=== PATIENT | female | born 1965 | race Caucasian/White ===

== ENCOUNTER 2025-04-07 22:00 | Emergency (ER) | payer OTHER, SELFPAY ==
--- OUTSIDE RECORDS SUMMARY | 2025-04-07 22:03 | XMS_ITS | Encounter Summary ---
Author Organization [facility] Address [address] [place] [address] Care Team Providers Care Graduate Student Instructor Name Role Phone Shon More MD Primary Care Provider [phone] Encounter Details Date Type Department Care Team (Latest Contact Info) Description 04/17/2006 Outpatient Historical [facility] Kashif Redmond MD [address] [facility] [address] [place] [address] Other Screening Mammogram (Primary Dx) Social History Tobacco Use Types Packs/Day Years Used Date Smoking Tobacco: Never Assessed Comments Unknown Sex and Gender Information Value Date Recorded Sex Assigned at Not on file Legal Sex Female 3:52 AM DIE OPERATOR Gender Identity Not on file Sexual Orientation Not on file documented as of this encounter Plan of Treatment Upcoming Encounters Date Type Department Care Team (Late st Contact Info) Description 01/25/2026 10:00 AM DIE OPERATOR Office Visit [facility] Primary [facility] [place] [address] [place] [address] [place] [address] [place] [address] documented as of this encounter Visit Diagnoses Diagnosis Other screening mammogram- Primary documented in this encounter Care Teams Graduate Student Instructor Relationship Specialty [place] [address] [address] [address] PCP - General Family Practice 08/20/23 documented as of this encounter
--- OUTSIDE RECORDS SUMMARY | 2025-04-07 22:03 | XMS_ITS | Clinical Summary ---
Author Organization [facility] Administrative Offices Address [address] [place] [address] Care Team Providers Care Art Tracer Name Role Phone Shon More MD Primary Care Provider [phone] Allergies Active Allergy Reactions Criticality Noted Date Comments Cefprozil Nausea and Vomiting,Dizziness Low 08/20/2023 Sulfa (Sulfonamide Antibiotics) Rash Low 08/20/2023 Medications IBUPROFEN ORAL Take 600 mg by mouth daily. Active acetaminophen (TYLENOL ARTHRITIS) 650 mg Extended Release tablet Take 650 mg by mouth daily. Active ALPRAZolam (XANAX) 0.25 mg tabletIndicatio ns:Anxiety Take 1 Tablet (0.25 mg) by mouth 2 times daily as needed for Anxiety. Take smallest dose, for shortest duration as needed. 20 Tablet 01/09/2024 Active methocarbamoL (ROBAXIN) 500 mg tabletIndicatio ns:Chronic bilateral low back pain without sciatica Take 1 Tablet (500 mg) by mouth 4 times daily as needed for Spasm. 90 Tablet 11 05/25/2024 Active benzonatate (TESSALON) 200 mg capsule Take 1 Capsule (200 mg) by mouth 3 times daily. 20 Capsule 1 03/11/2025 Active Active Problems Problem Noted Date Diagnosed Date Prediabetes 02/23/2025 Osteopenia of multiple sites 01/19/2025 Assessment & Plan (01/19/2025 10:40 AM DOUGH SCALER AND MIXER): On DEXA from OBGYN 06/2024 Diet/exercise tips in AVS, check vitD, etc Orders: COMPREHENSIVE METABOLIC PANEL; Future VITAMIN D 25 HYDROXY; Future Anxiety 01/09/2024 Assessment & Plan (01/19/2025 10:40 AM DOUGH SCALER AND MIXER): Stable on medications. Rare PRN xanax. No SI, if applicable discussed stress relief, sleep tips and/or see AVS. Spinal stenosis of lumbar re gion without neurogenic claudication 11/19/2023 Assessment & Plan (11/19/2023 11:12 AM DOUGH SCALER AND MIXER): Stable and Suboptimal control. Does yoga, prn (OTC)Beyp-zpf-Llvkdvd meds. Rarely has needed prednisone taper PO (last 2y ago approx) History of partial thyroidectomy 11/19/2023 Assessment & Plan (01/19/2025 10:40 AM DOUGH SCALER AND MIXER): Monitor labs. Orders: TSH REFLEXIVE; Future Assessment & Plan (11/19/2023 11:01 AM DOUGH SCALER AND MIXER): Stable. 2003 / cyst (benign). Monitor labs. Cataract of left eye 11/19/2023 Assessment & Plan (11/19/2023 11:04 AM DOUGH SCALER AND MIXER): Suboptimal control. Hx detached retinal; plans catact surgery 11/30/2022. Dr. Nigel Gunn. Scoliosis of lumbar spine 08/20/2023 Assessment & Plan (08/20/2023 1:19 PM CDT): Stable. Doing yoga, applies ice and takes tylenol PRN. [facility] seen by [facility] at [facility]. Pt will bring MRI results to next visit. Encounters Date Type Department Care Team Description 03/11/2025 Telephone [facility] [place] [address] [place] [address] Shon More MD Clinical Consult Before Scheduling 02/23/2025 Results Follow-Up [facility] [place] [address] [place] [address] Shon More MD CBC WITH DIFFERENTIAL, COMPREHENSIVE METABOLIC PANEL, HEMOGLOBIN A1C, Additional followed-up results: 3 02/22/2025 External Device Data [facility] ABSTRACTION Provider, Abstract 02/09/2025 External Device Data [facility] ABSTRACTION Provider, Abstract 02/01/2025 External Device Data [facility]STRACTION Provider, Abstract 02/01/2025 External Device Data [facility] [place]CTION Provider, Abstract 01/31/2025 External Device Data [facility]CTION Provider, Abstract 01/29/2025 External Device Data [facility]CTION Provider, Abstract 01/28/2025 External Device Data [facility] [place]STRACTION Provider, Abstract 01/25/2025 External Device Data [facility] ABSTRACTION Provider, Abstract 01/19/2025 10:00 AM DOUGH SCALER AND MIXER Office Visit [facility] [place] [address] [facility] [place] [address] Shon More MD Encounter for routine adult health examination with abnormal findings (Primary Dx); Anxiety; History of partial thyroidectomy; Encounter for colorectal cancer screening; Osteopenia of multiple sites; Screening for blood disease; Screening for diabetes mellitus (DM); Lipid screening; Encounter for vitamin deficiency screening; Screening for thyroid disorder; Declined influenza vaccine 01/11/2025 External Device Data [facility] ABSTRACTION Provider, Abstract from Last 3 Months Immunizations Immunization Administration Dates Next Due INFLUENZA VACCINE QUADRIVALENT 6 MOS UP PF IM Influenza Seasonal Unspecified Formulation IM ,08/14/2022 Influenza Vaccine High Dose 65+ Yrs IM 8 Family History Medical History Relation Name Comments Diabetes Father Pillo Cancer Mother Judith Breast Cancer Sister 1 Clarissa Gonzales 2004 Kidney Cancer Sister 1 Clarissa Gonzales Multiple myeloma Sister 1 Clarissa Gonzales Cancer - Other Sister 2 Pillo Blood cancer, Neuropathy Multiple myeloma Sister 2 Pillo Ovarian Cancer Neg Hx Relation Name Status Comments Father Pillo Mother Judith Sister 1 Clarissa Gonzales Sister 2 Pillo Social History Tobacco Use Types Packs/Day Years Used Date Smoking Tobacco: Never Smokeless Tobacco: Never Tobacco Cessation:Counseling Given: Not Answered Alcohol Use Standard Drinks/Week Comments Yes 1 (1 standard drink = 0.6 oz pur e alcohol) Comments No Sex and Gender Information Value Date Recorded Sex Assigned at Not on file Legal Sex Female 3:52 AM DOUGH SCALER AND MIXER Gender Identity Not on file Sexual Orientation Not on file Occupation Industry Job Start Date Job End Date Not on file Not on file Not on file Not on file [employer] Not on file Not on file Not on patt e Last Filed Vital Signs Vital Sign Reading Time Taken Comments Blood Pressure 118/62 01/19/2025 10:03 AM DOUGH SCALER AND MIXER Pulse 74 01/19/2025 10:03 AM DOUGH SCALER AND MIXER Temperature 37.1 C (98.7 F) 11/19/2023 10:26 AM DOUGH SCALER AND MIXER Respiratory Rate 22 11/19/2023 10:26 AM DOUGH SCALER AND MIXER Oxygen Saturation 98% 01/19/2025 10:03 AM DOUGH SCALER AND MIXER Inhaled Oxygen Concentration - - Weight 73 kg (161 lb) 01/19/2025 10:03 AM DOUGH SCALER AND MIXER Height 172.7 cm (5' 8 ) 01/19/2025 10:03 AM DOUGH SCALER AND MIXER Body Mass Index 24.48 01/19/2025 10:03 AM DOUGH SCALER AND MIXER Plan of Treatment Upcoming Encounters Date Type Department Care Team (Late st Contact Info) Description 01/25/2026 10:00 AM DOUGH SCALER AND MIXER Office Visit [facility] Primary [facility] [place] [address] [place] [address] [place] [address] [place] [address] Health Maintenance Due Date Last Done Comments DTAP/TDAP/TD VACCINES (1 - Tdap) 02/27/1983 HPV/Cotest (21-29) 02/27/1985 CERVICAL CANCER SCREENING 02/27/1994 HPV/Cotest (30-65) 02/27/1994 PAP SMEAR 02/27/1994 COLORECTAL SCREENING 02/27/2009 Colorectal Cancer Screening 02/27/2009 FIT-DNA Q 3 years 02/27/2009 FIT/FOBT Q 1 year 02/27/2009 Flex Sig/CT Colonography Q 5 years 02/27/2009 ZOSTER VACCINE (1 of 2) 02/27/2014 COVID-19 Vaccine (2023-2 5 season) 2024 01/30/2021, 01/03/2021 BREAST CANCER SCREENING 08/04/2025 08/04/20 24, 04/16/2023, 03/01/2021, Additional history exists RSV VACCINE (60+ or ) (1 - 1-dose 75+ series) 02/27/2039 INFLUENZA VACCINE Completed 01/19/2025, , 08/14/2022, Additional history exists Preventative Visit- Commercial Completed 0 01/19/2025, 05/25/2024, 08/20/2023 Procedures Procedure Name Priority Date/Time Associated Diagnosis Comments VITAMIN D 25 HYDROXY Routine 02/21/2025 8:06 AM CDT Encounter for routine adult health examination with abnormal findings Osteopenia of multiple sites Screening for blood disease Encounter for vitamin deficiency screening TSH REFLEXIVE Routine 02/21/2025 8:06 AM CDT Encounter for routine adult health examination with abnormal findings Screening for thyroid disorder History of partial thyroidectomy LIPID RFLX Routine 02/21/2025 8:06 AM CDT Encounter for routine adult health examination with abnormal findings Screening for blood disease Lipid screening HEMOGLOBIN A1C Routine 02/21/2025 8:06 AM CDT Encounter for routine adult health examination with abnormal findings Screening for diabetes mellitus (DM) COMPREHENSIVE METABOLIC PANEL Routine 02/21/2025 8:06 AM CDT Encounter for routine adult health examination with abnormal findings Osteopenia of multiple sites Screening for blood disease Screening for diabetes mellitus (DM) CBC WITH DIFFERENTIAL Routine 02/21/2025 8:06 AM CDT Encounter for routine adult health examination with abnormal findings Screening for blood disease MAMMO 3D STEPHANIE SCREEN BILAT W OR WO CAD Routine 08/04/2024 11:09 AM CDT Breast cancer screening by mammogram from Last 3 Months or Most Recently Relevant to Health Maintenance Results * LIPID RFLX (02/21/2025 8:06 AM CDT) CHOLESTEROL 184 <200 mg/dL [facility] HDL 69 > OR = 50 mg/dL [facility] TRIGLYCERIDE 76 <150 mg/dL [facility] LDL CALCULATED 98 mg/dL (calc) [facility] Comment: Reference range: <100 Desirable range <100 mg/dL for primary prevention; <70 mg/dL for patients with CHD or diabetic patients with > or = 2 CHD risk factors. LDL-C is now calculated using the Bo calculation, which is a validated novel method providing better accuracy than the Friedewald equation in the estimation of LDL-C. Schuyler LUCAS et al. GITA. 2013;310(19): 5288-9209 (http://education.Restorius/faq/XAF867) CHOL/HDL RATIO 2.7 <5.0 (calc) [facility] NON-HDL CHOLESTEROL 115 <130 mg/dL (calc) [facility] Comment: For patients with diabetes plus 1 major ASCVD risk factor, treating to a non-HDL-C goal of <100 mg/dL (LDL-C of <70 mg/dL) is considered a therapeutic option. Test Performed at: [facility] [address] [place] [address] Teddy Patel MD Blood 02/21/2025 8:06 AM CDT 02/21/2025 8:06 AM CDT us Shon More MD CHEMISTRY ORDERABLES Final Resu lt Performing Organization Address City/[facility]/ZIP Co de Phone Number [facility] [phone] [facility] [id number] [place] [phone] * TSH REFLEXIVE (02/21/2025 8:06 AM CDT) TSH 3.91 0.40 - 4.50 mIU/L [facility] Comment: Test Performed at: [facility] [address] [place] [address] Teddy Patel MD Blood 02/21/2025 8:06 AM CDT 02/21/2025 8:06 AM CDT Shon More MD CHEMISTRY ORDERABLES Final Resu lt [facility] [phone] [facility] [address] [place] [address] * CBC WITH DIFFERENTIAL (02/21/2025 8:06 AM CDT) Pathologist [facility] WBC 4.8 3.8 - 10.8 Thousand/u L [facility] RBC 4.35 3.80 - 5.10 Million/uL [facility] HEMOGLOBIN 14.2 11.7 - 15.5 g/dL [facility] HEMATOCRIT 41.0 35.0 - 45.0 % [facility] MCV 94.3 80.0 - 100.0 fL [facility] MCH 32.6 27.0 - 33.0 pg [facility] MCHC 34.6 32.0 - 36.0 g/dL [facility] Comment: For adults, a slight decrease in the calculated MCHC value (in the range of 30 to 32 g/dL) is most likely not clinically significant; however, it should be interpreted with caution in correlation with other red cell parameters and the patient's clinical condition. RDW 12.2 11.0 - 15.0 % [facility] PLATELETS 320 140 - 400 Thousand/u L [facility] MPV 8.8 7.5 - 12.5 fL [facility] NEUTROPHIL ABSOLUTE 2,198 1,500 - 7,800 cells/uL [facility] LYMPHOCYTE ABSOLUTE 2,011 850 - 3,900 cells/uL [facility] MONOCYTE ABSOLUTE 398 200 - 950 cells/uL [facility] EOSINOPHIL ABSOLUTE 110 15 - 500 cells/uL [facility] BASOPHILS ABSOLUTE 82 0 - 200 cells/uL [facility] NEUTROPHIL 45.8 % [facility] LYMPHOCYTES 41.9 % [facility] MONOCYTE 8.3 % [facility] EOSINOPHILS 2.3 % [facility] BASOPHILS 1.7 % [facility] Comment: Test Performed at: [facility] [address] [place] [address] Teddy Patel MD Blood 02/21/2025 8:06 AM CDT 02/21/2025 8:06 AM CDT Shon More MD HEMATOLOGY ORDERABLES Final Res ult Performing Organization Address [facility] Co de Phone Number [facility] [phone] [facility] [address] [place] [address] * VITAMIN D 25 HYDROXY (02/21/2025 8:06 AM CDT) VITAMIN D, 25 OH, TOTAL 80 30 - 100 ng/mL [facility] Comment: Vitamin D Status 25-OH Vitamin D: Deficiency: <20 ng/mL Insufficiency: 20 - 29 ng/mL Optimal: > or = 30 ng/mL For 25-OH Vitamin D testing on patients on D2-supplementation and patients for whom quantitation of D2 and D3 fractions is required, the [facility]) 25-OH VIT D, (D2,D3), LC/MS/MS is recommended: order code 72101 (patients >2yrs). See Note 1 Note 1 For additional information, please refer to http://education.Restorius/faq/VUX947 (This link is being provided for informational/ educational purposes only.) FASTING:YES FASTING: YES Test Performed at: [facility] [address] Teddy Patel MD Blood 02/21/2025 8:06 AM CDT 02/21/2025 8:06 AM CDT Shon More MD CHEMISTRY ORDERABLES Final Resu lt Performing Organization Address City/[facility]/ZIP Co de Phone Number [facility] [phone] [facility] [address] * (ABNORMAL) HEMOGLOBIN A1C (02/21/2025 8:06 AM CDT) HEMOGLOBIN A1C 5.7(H) <5.7 % of total Hgb [facility] Comment: For someone without known diabetes, a hemoglobin A1c value between 5.7% and 6.4% is consistent with prediabetes and should be confirmed with a follow-up test. For someone with known diabetes, a value <7% indicates that their diabetes is well controlled. A1c targets should be individualized based on duration of diabetes, age, comorbid conditions, and other considerations. This assay result is consistent with an increased risk of diabetes. Currently, no consensus exists regarding use of hemoglobin A1c for diagnosis of diabetes for children. ESTIMATED AVERAGE GLUCOSE (MG/DL) 117 mg/dL [facility] ESTIMATED AVERAGE GLUCOSE (MMOL/L) 6.5 mmol/L [facility] Comment: FASTING:YES FASTING: YES Test Performed at: [facility] [address] [address] [place] [address] Teddy Patel Blood 02/21/2025 8:06 AM CDT 02/21/2025 8:06 AM CDT us Shon More MD CHEMISTRY ORDERABLES Final Resu lt [facility] [phone] [facility] [address] [address] [place] [address] * COMPREHENSIVE METABOLIC PANEL (02/21/2025 8:06 AM CDT) GLUCOSE 88 65 - 99 mg/dL [facility] Comment: Fasting reference interval BUN 13 7 - 25 mg/dL [facility] CREATININE 0.76 0.50 - 1.05 mg/dL [facility] GFR 90 > OR = 60 mL/min/1. 73m2 [facility] BUN/CREAT RATIO SEE NOTE: 6 - 22 (calc) [facility] Comment: Not Reported: BUN and Creatinine are within reference range. SODIUM 140 135 - 146 mmol/L [facility] POTASSIUM 4.1 3.5 - 5.3 mmol/L [facility] CHLORIDE 102 98 - 110 mmol/L [facility] CO2 30 20 - 32 mmol/L [facility] CALCIUM 9.4 8.6 - 10.4 mg/dL [facility] TOTAL PROTEIN 6.9 6.1 - 8.1 g/dL [facility] ALBUMIN 4.4 3.6 - 5.1 g/dL [facility] GLOBULIN 2.5 1.9 - 3.7 g/dL (calc) [facility] ALBUMIN/GLOBULIN RATIO 1.8 1.0 - 2.5 (calc) [facility] BILIRUBIN TOTAL 0.4 0.2 - 1.2 mg/dL [facility] ALKALINE PHOSPHATASE 67 37 - 153 U/L [facility] AST 22 10 - 35 U/L [facility] ALT 18 6 - 29 U/L [facility] Comment: FASTING:YES FASTING: YES Test Performed at: [facility] [address] [place] [address] Teddy Patel MD Blood 02/21/2025 8:06 AM CDT 02/21/2025 8:06 AM CDT Shon More MD CHEMISTRY ORDERABLES Final Resu lt [facility] [phone] [facility] [address] [place] [address] * MAMMO 3D STEPHANIE SCREEN BILAT W OR WO CAD (08/04/2024 11:09 AM CDT) Anatomical Region Laterality Modality Breast Bilateral Mammography 08/04/2024 11:0 9 AM CDT Impressions 08/04/2024 11:45 AM CDT IMPRESSION: Negative bilateral screening mammogram. Recommend routine followup. OVERALL FINAL ASSESSMENT: BI-RADS CATEGORY 1 - Negative. DICTATION LOCATION: [facility] Narrative 08/04/2024 11:45 AM CDT BILATERAL SCREENING DIGITAL MAMMOGRAMS WITH COMPUTER ASSISTED DIAGNOSIS WITH TOMOGRAPHY DATE: 08/04/2024 11:09 AM HISTORY: Breast cancer screening by mammogram COMPARISON: 04/16/2023 and 03/01/2021. TECHNIQUE: A bilateral screening mammogram was performed. Low-dose full-field digital breast tomosynthesis examination was performed with 2D and 3D acquisitions. Examination is read in conjunction with computer aided detection. BREAST COMPOSITION: There are scattered areas of fibroglandular density. FINDINGS: No new masses, suspicious calcifications, or areas of asymmetry or distortion are identified. The images were reviewed using the CAD system. Procedure Note Malini Yi MD - 08/04/2024 BILATERAL SCREENING DIGITAL MAMMOGRAMS WITH COMPUTER ASSISTED DIAGNOSIS WITH TOMOGRAPHY DATE: 08/04/2024 11:09 AM HISTORY: Breast cancer screening by mammogram COMPARISON: 04/16/2023 and 03/01/2021. TECHNIQUE: A bilateral screening mammogram was performed. Low-dose full-field digital breast tomosynthesis examination was performed with 2D and 3D acquisitions. Examination is read in conjunction with computer aided detection. BREAST COMPOSITION: There are scattered areas of fibroglandular density. FINDINGS: No new masses, suspicious calcifications, or areas of asymmetry or distortion are identified. The images were reviewed using the CAD system. IMPRESSION: Negative bilateral screening mammogram. Recommend routine followup. OVERALL FINAL ASSESSMENT: BI-RADS CATEGORY 1 - Negative. DICTATION LOCATION: [facility] Lena Yoder MD MAMMO ORDERABLES Final Result from Last 3 Months or Most Recently Relevant to Health Maintenance Insurance [facility] OPTIONS [address]PO [id number] [place] [address] RX [employer] RX Member Subscriber Plan / Payer (Ef fective 2022-Present) Name:Nena Bradford Relation to Subscriber:Not on file Name:Nena Bradford Subscriber ID:Not on file Date of :1965 Payer ID:Not on file Type:RX Commercial Address: [place] Care Teams Art Tracer Relationship Specialty [place] [address] [place] [phone] PCP - General Family Practice 08/20/23
--- OUTSIDE RECORDS SUMMARY | 2025-04-07 22:03 | XMS_ITS | Encounter Summary ---
Author Organization [facility] Address [address] [place] [address] Care Team Providers Care Gym Instructor Name Role Phone Shon More MD Primary Care Provider [phone] Encounter Details Date Type Department Care Team (Latest Contact Info) Description 07/14/2002 Outpatient Historical [facility] Tam Waldrop MD [address] [facility] [place] [address] NONTOX UNINODULAR GOITER (Primary Dx) Social History Tobacco Use Types Packs/Day Years Used Date Smoking Tobacco: Never Assessed Comments Unknown Sex and Gender Information Value Date Recorded Sex Assigned at Not on file Legal Sex Female 3:52 AM CABLE ENGINEER Gender Identity Not on file Sexual Orientation Not on file documented as of this encounter Plan of Treatment Upcoming Encounters Date Type Department Care Team (Late st Contact Info) Description 01/25/2026 10:00 AM CABLE ENGINEER Office Visit [facility] Primary [facility] [place] [address] [place] [address] [place] [address] [address] [place] [address] documented as of this encounter Visit Diagnoses Diagnosis Nontoxic uninodular goiter- Primary documented in this encounter Care Teams Gym Instructor Relationship Specialty [place] [address] [address] [place] [phone] PCP - General Family Practice 08/20/23 documented as of this encounter
--- OUTSIDE RECORDS SUMMARY | 2025-04-07 22:03 | XMS_ITS | Encounter Summary ---
Author Organization [facility] Address [address] [place] [address] Care Team Providers Care Cutting And Printing Machine Operator Name Role Phone Shon More MD Primary Care Provider [phone] Encounter Details Date Type Department Care Team (Latest Contact Info) Description 05/11/2002 Outpatient Historical [facility]PATIENT Tam Waldrop MD [address] [facility] [facility] [address] [place] [address] CYST OF THYROID (Primary Dx) Social History Tobacco Use Types Packs/Day Years Used Date Smoking Tobacco: Never Assessed Comments Unknown Sex and Gender Information Value Date Recorded Sex Assigned at Not on file Legal Sex Female 3:52 AM TRESTLE MECHANIC Gender Identity Not on file Sexual Orientation Not on file documented as of this encounter Plan of Treatment Upcoming Encounters Date Type Department Care Team (Late st Contact Info) Description 01/25/2026 10:00 AM TRESTLE MECHANIC Office Visit [facility] [place] [address] [place] [address] [place] [address] [place] [address] documented as of this encounter Visit Diagnoses Diagnosis Cyst of thyroid- Primary documented in this encounter Care Teams Cutting And Printing Machine Operator Relationship Specialty [place] [address] [place] [phone] PCP - General Family Practice 08/20/23 documented as of this encounter
--- OUTSIDE RECORDS SUMMARY | 2025-04-07 22:03 | XMS_ITS | Encounter Summary ---
Author Organization [facility] Address [address] [place] [address] Care Team Providers Care Cra Name Role Phone Shon More MD Primary Care Provider [phone] Encounter Details Date Type Department Care Team (Latest Contact Info) Description 09/12/2003 Outpatient Historical [facility] Vazquez SEBACEOUS CYST (Primary Dx) Social History Tobacco Use Types Packs/Day Years Used Date Smoking Tobacco: Never Assessed Comments Unknown Sex and Gender Information Value Date Recorded Sex Assigned at Not on file Legal Sex Female 3:52 AM JAVA DEVELOPER ANALYST Gender Identity Not on file Sexual Orientation Not on file documented as of this encounter Plan of Treatment Upcoming Encounters Date Type Department Care Team (Late st Contact Info) Description 01/25/2026 10:00 AM JAVA DEVELOPER ANALYST Office Visit [facility] [place] [address] [place] [address] [place] [address] [address] [place] [address] documented as of this encounter Visit Diagnoses Diagnosis Sebaceous cyst- Primary documented in this encounter Care Teams Cra Relationship Specialty [place] [address] [address] [place] [address] PCP - General Family Practice 08/20/23 documented as of this encounter
--- OUTSIDE RECORDS SUMMARY | 2025-04-07 22:03 | XMS_ITS | Encounter Summary ---
Author Organization [facility] Address [address] [place] [address] Care Team Providers Care Coffin Maker Name Role Phone Shon More MD Primary Care Provider [phone] Encounter Details Date Type Department Care Team (Latest Contact Info) Description 03/23/2004 Outpatient Historical HIS [facility] Kashif Redmond MD [address] [facility] [address] [place] [address] SCREENING MAMM-MAILG NEOPL-OTHER (Primary Dx) Social History Tobacco Use Types Packs/Day Years Used Date Smoking Tobacco: Never Assessed Comments Unknown Sex and Gender Information Value Date Recorded Sex Assigned at Not on file Legal Sex Female 3:52 AM DIRECTOR OF PROGRAMMING Gender Identity Not on file Sexual Orientation Not on file documented as of this encounter Plan of Treatment Upcoming Encounters Date Type Department Care Team (Late st Contact Info) Description 01/25/2026 10:00 AM DIRECTOR OF PROGRAMMING Office Visit [facility] Primary [place] [address] [address] [place] [address] [place] [address] [address] [place] [address] documented as of this encounter Visit Diagnoses Diagnosis Other screening mammogram- Primary documented in this encounter Care Teams Coffin Maker Relationship Specialty [place] [address] [address] [place] [address] PCP - General Family Practice 08/20/23 documented as of this encounter
--- OUTSIDE RECORDS SUMMARY | 2025-04-07 22:03 | XMS_ITS | Encounter Summary ---
Author Organization [facility] Address [address] [place] [address] Care Team Providers Care Forensic Dna Analyst Name Role Phone Shon More MD Primary Care Provider [phone] Encounter Details Date Type Department Care Team (Late st Contact Info) Description 02/23/2025 Results Follow-Up [facility] [place] [address] [place] [address] [place] [address] [place] [address] CBC WITH DIFFERENTIAL, COMPREHENSIVE METABOLIC PANEL, HEMOGLOBIN A1C, Additional followed-up results: 3 Social History Tobacco Use Types Packs/Day Years Used Date Smoking Tobacco: Never Smokeless Tobacco: Never Alcohol Use Standard Drinks/Week Comments Yes 1 (1 standard drink = 0.6 oz pur e alcohol) Comments No Sex and Gender Information Value Date Recorded Sex Assigned at Not on file Legal Sex Female 3:52 AM CIRCULAR KNITTER HELPER Gender Identity Not on file Sexual Orientation Not on file Occupation Industry Job Start Date Job End Date Not on file Not on file Not on file Not on file [employer] Not on file Not on file Not on patt e documented as of this encounter Plan of Treatment Upcoming Encounters Date Type Department Care Team (Late st Contact Info) Description 01/25/2026 10:00 AM CIRCULAR KNITTER HELPER Office Visit [facility] [place] [address] [place] [address] [place] [address] [place] [address] documented as of this encounter Visit Diagnoses Diagnosis Prediabetes- Primary Other abnormal glucose documented in this encounter Care Teams Forensic Dna Analyst Relationship Specialty [place] [address] [facility] [place] [address] PCP - General Family Practice 08/20/23 documented as of this encounter
--- OUTSIDE RECORDS SUMMARY | 2025-04-07 22:03 | XMS_ITS | Encounter Summary ---
Author Organization [facility] Address [address] [place] [address] Care Team Providers Care Radiotelegraphist Name Role Phone Shon More MD Primary Care Provider [phone] Encounter Details Date Type Department Care Team (Latest Contact Info) Description 07/14/2008 Outpatient Historical HIS [facility] Ayaka Redmond MD [address] [address] [place] [address] Other Screening Mammogram Social History Tobacco Use Types Packs/Day Years Used Date Smoking Tobacco: Never Assessed Comments Unknown Sex and Gender Information Value Date Recorded Sex Assigned at Not on file Legal Sex Female 3:52 AM KEY BED INSTALLER Gender Identity Not on file Sexual Orientation Not on file documented as of this encounter Plan of Treatment Upcoming Encounters Date Type Department Care Team (Late st Contact Info) Description 01/25/2026 10:00 AM KEY BED INSTALLER Office Visit [facility] Primary [place] [address] [place] [address] [place] [address] [place] [address] documented as of this encounter Procedures Procedure Name Priority Date/Time Associated Diagnosis Comments MAMMO SCREEN BILAT W OR WO CAD Routine 07/14/2008 2:08 PM CDT documented in this encounter Results * MAMMO DIGITAL SCREEN BILAT (07/14/2008 2:08 PM CDT) Anatomical Region Laterality Modality Breast Bilateral Other 07/14/2008 2:08 PM CDT Narrative 07/14/2008 3:12 PM CDT [address] [address] Admit Date: 07/14/2008 NENA YODER Sex: F Admit Prov: AYAKA SHETH Date: 1965 Primary Care Prov: LISA DE LA CRUZ CMRN: [id number] Room: Mike N: [id number] IMAGING SERVICES Ordering Prov: AYAKA SHETH Accession Number: [id number] Interpretation BILATERAL DIGITAL MAMMOGRAM WITH COMPUTER-ASSISTED DIAGNOSIS There is moderate density fibroglandular tissue in each breast and the pattern is relatively symmetrical. There is no evidence of a dominant mass, malignant type calcification or other radiographic manifestation of malignancy. No change since 02/26. The CAD system was utilized. IMPRESSION No radiographic evidence of malignancy. Assessment BIRADS: 1-Negative Recommendation: Normal interval follow-up Dictated by: VICTOR M VALDERRAMA Electronically signed by: VICTOR M VALDERRAMA 07/14/2008 15:12 Transcribed: 07/14/2008 15:12 CO Procedure Note Victor M Valderrama - 07/14/[address] [address] Admit Date: 07/14/2008 NENA YODER Sex: F Admit Prov: AYAKA SHETH Date: 1965 Primary Care Prov: LISA DE LA CRUZ CMRN: [id number] [facility]: [id number] IMAGING SERVICES Ordering Prov: AYAKA SHETH Interpretation BILATERAL DIGITAL MAMMOGRAM WITH COMPUTER-ASSISTED DIAGNOSIS There is moderate density fibroglandular tissue in each breast andthe pattern is relatively symmetrical. There is no evidence of a dominantmass, malignant type calcification or other radiographic manifestation of malignancy. No change since 02/26. The CAD system was utilized. IMPRESSION No radiographic evidence of malignancy. Assessment BIRADS: 1-Negative Recommendation: Normal interval follow-up Dictated by: VICTOR M VALDERRAMA Electronically signed by: VICTOR M VALDERRAMA 07/14/2008 15:12 Transcribed: 07/14/2008 15:12 CO Ayaka Sheth MD MAMMO ORDERABLES Final Result documented in this encounter Visit Diagnoses Diagnosis Other screening mammogram documented in this encounter Care Teams Radiotelegraphist Relationship Specialty [place] [address] [facility] [place] [address] PCP - General Family Practice 08/20/23 documented as of this encounter
--- OUTSIDE RECORDS SUMMARY | 2025-04-07 22:03 | XMS_ITS | Encounter Summary ---
Author Organization [facility] Address [address] [place] [address] Care Team Providers Care Animal Humane Agent Supervisor Name Role Phone Shon More MD Primary Care Provider [phone] Encounter Details Date Type Department Care Team (Late st Contact Info) Description 08/23/2005 Outpatient Historical [facility] Sena Lamas DIZZINESS AND GIDDINESS (Primary Dx) Social History Tobacco Use Types Packs/Day Years Used Date Smoking Tobacco: Never Assessed Comments Unknown Sex and Gender Information Value Date Recorded Sex Assigned at Not on file Legal Sex Female 3:52 AM CAB DRIVER Gender Identity Not on file Sexual Orientation Not on file documented as of this encounter Plan of Treatment Upcoming Encounters Date Type Department Care Team (Late st Contact Info) Description 01/25/2026 10:00 AM CAB DRIVER Office Visit [facility] [place] [address] [place] [address] [place] [address] [address] [place] [address] documented as of this encounter Visit Diagnoses Diagnosis Dizziness and giddiness- Primary documented in this encounter Care Teams Animal Humane Agent Supervisor Relationship Specialty [place] [address] [address] [place] [address] PCP - General Family Practice 08/20/23 documented as of this encounter
--- OUTSIDE RECORDS SUMMARY | 2025-04-07 22:03 | XMS_ITS | Encounter Summary ---
Author Organization [facility] Address [address] [place] [address] Care Team Providers Care Rafter Cutting Machine Operator Name Role Phone Shon More MD Primary Care Provider [phone] Encounter Details Date Type Department Care Team (Latest Contact Info) Description 08/26/2002 Outpatient Historical HIS [facility] Tam Solitario MD [address] [facility] [place] [address] NONTOX MULTINODUL GOITER (Primary Dx) Social History Tobacco Use Types Packs/Day Years Used Date Smoking Tobacco: Never Assessed Comments Unknown Sex and Gender Information Value Date Recorded Sex Assigned at Not on file Legal Sex Female 3:52 AM TICKET COLLECTOR Gender Identity Not on file Sexual Orientation Not on file documented as of this encounter Plan of Treatment Upcoming Encounters Date Type Department Care Team (Late st Contact Info) Description 01/25/2026 10:00 AM TICKET COLLECTOR Office Visit [facility] [place] [address] [place] [address] [place] [address] [place] [address] documented as of this encounter Visit Diagnoses Diagnosis Nontoxic multinodular goiter- Primary documented in this encounter Care Teams Rafter Cutting Machine Operator Relationship Specialty [place] [address] [place] [address] PCP - General Family Practice 08/20/23 documented as of this encounter
--- OUTSIDE RECORDS SUMMARY | 2025-04-07 22:03 | XMS_ITS | Encounter Summary ---
Author Organization [facility] Address [address] [place] [address] Care Team Providers Care Environmental Education Specialist Name Role Phone Shon More MD Primary Care Provider [phone] Encounter Details Date Type Department Care Team (Latest Contact Info) Description 03/20/2005 Outpatient Historical HIS [facility] Kashif Redmond MD [address] [facility] [address] [place] [address] SCREENING MAMM-MAILG NEOPL-OTHER (Primary Dx) Social History Tobacco Use Types Packs/Day Years Used Date Smoking Tobacco: Never Assessed Comments Unknown Sex and Gender Information Value Date Recorded Sex Assigned at Not on file Legal Sex Female 3:52 AM ELECTRONIC SECURITY SPECIALIST Gender Identity Not on file Sexual Orientation Not on file documented as of this encounter Plan of Treatment Upcoming Encounters Date Type Department Care Team (Late st Contact Info) Description 01/25/2026 10:00 AM ELECTRONIC SECURITY SPECIALIST Office Visit [facility] [place] [address] [place] [address] [place] [address] [address] [place] [address] documented as of this encounter Visit Diagnoses Diagnosis Other screening mammogram- Primary documented in this encounter Care Teams Environmental Education Specialist Relationship Specialty [place] [address] [address] [place] [address] PCP - General Family Practice 08/20/23 documented as of this encounter
--- OUTSIDE RECORDS SUMMARY | 2025-04-07 22:03 | XMS_ITS | Encounter Summary ---
Author Organization [facility] Address [address] [place] [address] Care Team Providers Care Quality Assurance Supervisor Chassis Name Role Phone Shon More MD Primary Care Provider [phone] Encounter Details Date Type Department Care Team (Latest Contact Info) Description 06/26/2007 Outpatient Historical [facility] Kashif Redmond MD [address] [facility] [address] [place] [address] Other Screening Mammogram (Primary Dx) Social History Tobacco Use Types Packs/Day Years Used Date Smoking Tobacco: Never Assessed Comments Unknown Sex and Gender Information Value Date Recorded Sex Assigned at Not on file Legal Sex Female 3:52 AM FINANCIAL AID COORDINATOR Gender Identity Not on file Sexual Orientation Not on file documented as of this encounter Plan of Treatment Upcoming Encounters Date Type Department Care Team (Late st Contact Info) Description 01/25/2026 10:00 AM FINANCIAL AID COORDINATOR Office Visit [facility] Primary [place] [address] [address] [place] [address] [place] [address] [address] [place] [address] documented as of this encounter Visit Diagnoses Diagnosis Other screening mammogram- Primary documented in this encounter Care Teams Quality Assurance Supervisor Chassis Relationship Specialty [place] [address] [address] [place] [address] PCP - General Family Practice 08/20/23 documented as of this encounter
--- OUTSIDE RECORDS SUMMARY | 2025-04-07 22:03 | XMS_ITS | Encounter Summary ---
Author Organization [facility] Address [address] [place] [address] Care Team Providers Care Food Technician Name Role Phone Shon More MD Primary Care Provider [phone] Encounter Details Date Type Department Care Team (Latest Contact Info) Description 03/15/2003 Outpatient Historical HIS [facility] Kashif Redmond MD [address] [facility] [place] [address] [place] [address] SCREENING MAMM-MALIG NEOPL-HI RISK (Primary Dx) Social History Tobacco Use Types Packs/Day Years Used Date Smoking Tobacco: Never Assessed Comments Unknown Sex and Gender Information Value Date Recorded Sex Assigned at Not on file Legal Sex Female 3:52 AM ALUMNAE SECRETARY Gender Identity Not on file Sexual Orientation Not on file documented as of this encounter Plan of Treatment Upcoming Encounters Date Type Department Care Team (Late st Contact Info) Description 01/25/2026 10:00 AM ALUMNAE SECRETARY Office Visit [facility] [place] [address] [address] [place] [address] [place] [address] [place] [address] documented as of this encounter Visit Diagnoses Diagnosis Screening mammogram for high-risk patient- Primary documented in this encounter Care Teams Food Technician Relationship Specialty [place] [address] [place] [address] PCP - General Family Practice 08/20/23 documented as of this encounter
--- OUTSIDE RECORDS SUMMARY | 2025-04-07 22:03 | XMS_ITS | Encounter Summary ---
Author Organization [facility] Address [address] [place] [address] Care Team Providers Care Exhibits Curator Name Role Phone Shon More MD Primary Care Provider [phone] Encounter Details Date Type Department Care Team (Latest Contact Info) Description 03/23/2004 Outpatient Historical [facility] Sena Lamas SCREENING MAMM-MAILG NEOPL-OTHER (Primary Dx) Social History Tobacco Use Types Packs/Day Years Used Date Smoking Tobacco: Never Assessed Comments Unknown Sex and Gender Information Value Date Recorded Sex Assigned at Not on file Legal Sex Female 3:52 AM TREATMENT COUNSELOR Gender Identity Not on file Sexual Orientation Not on file documented as of this encounter Plan of Treatment Upcoming Encounters Date Type Department Care Team (Late st Contact Info) Description 01/25/2026 10:00 AM TREATMENT COUNSELOR Office Visit [facility] [place] [address] [address] [place] [address] [place] [address] [place] [address] documented as of this encounter Visit Diagnoses Diagnosis Other screening mammogram- Primary documented in this encounter Care Teams Exhibits Curator Relationship Specialty [place] [address] [place] [phone] PCP - General Family Practice 08/20/23 documented as of this encounter
[2025-04-07 22:10] VITALS: BP 144/100; PULSE 93; RESP 16; TEMP 36.7; O2SAT 97
--- OUTSIDE RECORDS SUMMARY | 2025-04-08 00:49 | XMS_ITS | Clinical Summary ---
Author Organization [facility] Administrative Offices Address [address] [place] [address] Care Team Providers Care Home Connect Lpn Name Role Phone Shon More MD Primary Care Provider [phone] Allergies Active Allergy Reactions Criticality Noted Date [...] 01/19/2025 Assessment & Plan (01/19/2025 10:40 AM FLAKING ROLL OPERATOR): On DEXA from OBGYN 06/2024 Diet/exercise tips in AVS, check vitD, etc Orders: COMPREHENSIVE METABOLIC PANEL; Future VITAMIN D 25 HYDROXY; Future Anxiety 01/09/2024 Assessment & Plan (01/19/2025 10:40 AM FLAKING ROLL OPERATOR): Stable on medications. Rare PRN xanax. No SI, if applicable discussed stress relief, sleep tips and/or see AVS. 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 Does yoga, prn (OTC)Qgyf-wyd-Femzpqr meds. Rarely has needed prednisone taper PO (last 2y ago approx) History of partial thyroidectomy 11/19/2023 Assessment & Plan (01/19/2025 10:40 AM FLAKING ROLL OPERATOR): Monitor labs. Orders: TSH REFLEXIVE; Future Assessment & Plan (11/19/2023 11:01 AM FLAKING ROLL OPERATOR): Stable. 2003 / cyst (benign). Monitor labs. Cataract of left eye 11/19/2023 Assessment & Plan (11/19/2023 11:04 AM FLAKING ROLL OPERATOR): Suboptimal control. Hx detached retinal; plans catact surgery 11/30/2022. Dr. Nigel Gunn. Scoliosis of lumbar spine 08/20/2023 Assessment & Plan (08/20/2023 1:19 PM CDT): Stable. Doing yoga, applies ice and takes tylenol PRN. Last seen by [facility] at [facility]. Pt will bring MRI results to next visit. Encounters Date Type Department Care Team Description 03/11/2025 Telephone [facility] [place] [address] [place] [address] Shon More MD Clinical Consult Before Scheduling 02/23/2025 Results Follow-Up [facility] [place] [address] [place] [address] Shon More MD CBC [...] STL ABSTRACTION Provider, Abstract 01/19/2025 10:00 AM FLAKING ROLL OPERATOR Office Visit [facility] [place] [address] [facility] [place] [address] Shon More MD Encounter for routine [...] Blood cancer, Neuropathy Multiple myeloma Sister 2 Pilol Ovarian Cancer Neg Hx Relation Name Status [...] on file Legal Sex Female 3:52 AM FLAKING ROLL OPERATOR Gender Identity Not on file Sexual Orientation Not on file Occupation Industry Job Start Date Job End Date Not on file Not on file Not on file Not on file [employer] Not on file Not on file Not on patt e Last Filed Vital Signs Vital Sign Reading Time Taken Comments Blood Pressure 118/62 01/19/2025 10:03 AM FLAKING ROLL OPERATOR Pulse 74 01/19/2025 10:03 AM FLAKING ROLL OPERATOR Temperature 37.1 C (98.7 F) 11/19/2023 10:26 AM FLAKING ROLL OPERATOR Respiratory Rate 22 11/19/2023 10:26 AM FLAKING ROLL OPERATOR Oxygen Saturation 98% 01/19/2025 10:03 AM FLAKING ROLL OPERATOR Inhaled Oxygen Concentration - - Weight 73 kg (161 lb) 01/19/2025 10:03 AM FLAKING ROLL OPERATOR Height 172.7 cm (5' 8 ) 01/19/2025 10:03 AM FLAKING ROLL OPERATOR Body Mass Index 24.48 01/19/2025 10:03 AM FLAKING ROLL OPERATOR Plan of Treatment Upcoming Encounters Date Type Department Care Team (Late st Contact Info) Description 01/25/2026 10:00 AM FLAKING ROLL OPERATOR Office Visit [facility] [place] [address] [place] [address] [place] [address] [address] [place] [address] Health Maintenance Due Date [...] LDL-C. Schuyler LUCAS et al. GITA. 2013;310(19): 8125-9617 (http://education.[employer]/faq/IVE367) CHOL/HDL RATIO 2.7 <5.0 (calc) [facility] NON-HDL CHOLESTEROL 115 <130 mg/dL (calc) [facility] Comment: For patients with diabetes plus 1 major ASCVD risk factor, treating to a non-HDL-C goal of <100 mg/dL (LDL-C of <70 mg/dL) is considered a therapeutic option. Test Performed at: [facility] [address] [place] [address] Teddy Patel MD Blood 02/21/2025 8:06 AM CDT 02/21/2025 8:06 AM CDT us Shon More MD CHEMISTRY ORDERABLES Final Resu lt Performing Organization Address City/[facility]/ZIP Co de Phone Number [facility] [phone] [facility] [id number] [place] [phone] * TSH REFLEXIVE (02/21/2025 8:06 AM CDT) TSH 3.91 0.40 - 4.50 mIU/L [facility] Comment: Test Performed at: [facility] [address] [place] [address] Teddy Patel MD Blood 02/21/2025 8:06 AM CDT 02/21/2025 8:06 AM CDT Shon More MD CHEMISTRY ORDERABLES Final Resu lt [facility] [phone] [facility] [address] [place] [address] * CBC WITH DIFFERENTIAL (02/21/2025 8:06 AM CDT) Pathologist [facility] WBC 4.8 3.8 - 10.8 Thousand/u L [...] [facility] Comment: Test Performed at: [facility] [address] [place] [address] Teddy Patel MD Blood 02/21/2025 8:06 AM CDT 02/21/2025 8:06 AM CDT Shon More MD HEMATOLOGY ORDERABLES Final Res ult Performing Organization Address [facility] Co de Phone Number [facility] [phone] [facility] [address] [place] [phone] * VITAMIN D 25 HYDROXY (02/21/2025 8:06 AM CDT) VITAMIN D, 25 OH, TOTAL 80 30 - 100 ng/mL [facility] Comment: Vitamin D Status 25-OH Vitamin D: Deficiency: <20 ng/mL Insufficiency: 20 - 29 ng/mL Optimal: > or = 30 ng/mL For 25-OH Vitamin D testing on patients on D2-supplementation and patients for whom quantitation of D2 and D3 fractions is required, the [facility] 25-OH VIT D, (D2,D3), LC/MS/MS is recommended: order code [id number] (patients >2yrs). See Note 1 Note 1 For additional information, please refer to http://education.[employer]/faq/HJG123 (This link is being provided for informational/ educational purposes only.) FASTING:YES FASTING: YES Test Performed at: [facility] [address] Teddy Patel MD Blood 02/21/2025 8:06 AM CDT 02/21/2025 8:06 AM CDT Shon More MD CHEMISTRY ORDERABLES Final Resu lt Performing Organization Address City/[facility]/ZIP Co de Phone Number [facility] [phone] [facility] [address] * (ABNORMAL) HEMOGLOBIN A1C (02/21/2025 8:06 AM CDT) HEMOGLOBIN A1C 5.7(H) <5.7 % of total Hgb [facility] Comment: For someone without known diabetes, a [...] children. ESTIMATED AVERAGE GLUCOSE (MG/DL) 117 mg/dL [facility] ESTIMATED AVERAGE GLUCOSE (MMOL/L) 6.5 mmol/L [facility] Comment: FASTING:YES FASTING: YES Test Performed at: [facility] [address] [address] [place] [address] Teddy Patel Blood 02/21/2025 8:06 AM CDT 02/21/2025 8:06 AM CDT us Shon More MD CHEMISTRY ORDERABLES Final Resu lt [facility] [phone] [facility] [address] [address] [place] [phone] * COMPREHENSIVE METABOLIC PANEL (02/21/2025 8:06 AM CDT) GLUCOSE 88 65 - 99 mg/dL [facility] Comment: Fasting reference interval BUN 13 [...] Comment: FASTING:YES FASTING: YES Test Performed at: [facility] [address] [place] [address] Teddy Patel MD Blood 02/21/2025 8:06 AM CDT 02/21/2025 8:06 AM CDT Shon More MD CHEMISTRY ORDERABLES Final Resu lt [facility] [phone] [facility] [address] [place] [address] * MAMMO 3D STEPHANIE SCREEN BILAT W OR WO CAD (08/04/2024 11:09 AM CDT) Anatomical Region Laterality Modality Breast Bilateral Mammography 08/04/2024 11:0 9 AM CDT Impressions 08/04/2024 11:45 AM CDT IMPRESSION: Negative bilateral screening mammogram. Recommend routine followup. OVERALL FINAL ASSESSMENT: BI-RADS CATEGORY 1 - Negative. DICTATION LOCATION: [facility] Narrative 08/04/2024 11:45 AM CDT BILATERAL SCREENING [...] BI-RADS CATEGORY 1 - Negative. DICTATION LOCATION: [facility] Lena Yoder MD MAMMO ORDERABLES Final Result from Last 3 Months or Most Recently Relevant to Health Maintenance Insurance [facility] OPTIONS PPO [id number] RX OPTUM RX Member Subscriber Plan / Payer (Ef fective 2022-Present) Name:Nena Bradford Relation to Subscriber:Not on file Name:Nena Bradford Subscriber ID:Not on file Date of :1965 Payer ID:Not on file Type:RX Commercial Address: [address] Care Teams Home Connect Lpn Relationship Specialty [place] [address] [address] [place] [phone] PCP - General Family Practice 08/20/23
--- OUTSIDE RECORDS SUMMARY | 2025-04-08 00:49 | XMS_ITS | Continuity of Care Document ---
Author Organization [facility] Address [address] [place] [address] Phone Care Team Providers Care Waxing Machine Operator Helper Name Role Phone Jaden Johnson MD Unavailable Unavailable Allergies, Adverse Reactions, Alerts Substance Reaction Status Criticality cefprozil Active No Information Sulfa (Sulfonamide Antibiotics) Nausea Active No Information Medications Medication Instructions Dosage Effective Dates (start - stop) Status Comments Tylenol Arthritis Pain 650 mg tablet,extended release take 2 tablet by oral route every 8 hours as needed swallowing whole with water. Do not break, crush, dissolve and/or chew. 1300 MG - Active Motrin IB 200 mg tablet take 1 tablet by oral route every 6 hours as needed with food 200 MG - Active Vitamin C 1,000 mg tablet - Active vitamin E 1,000 unit capsule - Active Vitamin D3 25 mcg (1,000 unit) tablet - Active vitamin B complex capsule - Active Green Tea capsule - Active acai coffman extract 500 mg capsule - Active Joint Support Complex 500 mg-100 mg-20 mg-0.5 mg capsule - Active Procedures Procedure Date X-ray exam knee, 4+ views X-ray exam knee, 3 views [place] [facility] [place] exam knee, 4+ views Advance Directives Directive Yes / No Effective Date File Name No Information Encounters Encounter Description Practice Location Reason(s) For Visit Diagnoses Date Provider Providers Copied on Encounter Office/outpa tient visit,new, mod [facility], [address] [place], [place], [id number], [place] tel:[phone] [facility] knee pain equally on both sides (chief complaint) Chondromalacia patellae, right kneeBilateral primary osteoarthritis of kneeChondromalaci a patellae, left knee 1 Elizabeth Stanley. [address], [address], [place], [place], [id number] , [place]. tel: [phone] Family History Family Member Type Diagnosis Age At Onset Father Problem Arthritis Mother Problem Cancer, unknown Father Problem Diabetes mellitus Sister Problem malignant neoplasm of kidney Sister Problem malignant neopla sm of breast in first degree relative Payers Payer name Insurance type Covered republican ID Authorayaz caraballo(s) [facility] CI [id number] Social History Type Description Quantity Date Captured Comments Alcohol Use Details Unknown Caffeine Use Details Unknown Tobacco Use Status Current non-smoker Smoking Status Never smoker Non-Smoking Tobacco Use Details : No Details Available : No Details Available Sex Female Vital Signs Date / Time: Height Weight BMI Pulse Rate Blood Pressure Temperature Respiratory Rate Body Surface Area Head Circumference Head Circ. Percentile Wt./Conor. Percentile BMI percentile Pulse Ox Inhaled Ox 11:15 AM 67.00 in Chief Complaint And Reason For Visit From encounter dated '06/20/2021 10:15'. knee pain equally on both sides (chief complaint). Description: Nena Bradford is a 56 year old female.She has a past history significant for lumbar spinal stenosis and degenerative scoliosis. The knee symptoms appear to be separate and distinct however. She presents with pain, crepitus and swelling on the right and left side equally. She states that the symptoms have been acute non-traumatic and beg an 4 months ago. The symptoms occur intermittently. The problem is worse. Currently the patient states that the symptoms are moderate-severe. The patient is experiencing pain in the following location: anterior on the right and left side equally. The pain does not radiate. The symptoms are aggravated by daily activities, ascending stairs and particularly walking. Nena states that the symptoms arerelieved by rest. In addition to knee pain equally on both sides the patient is also experiencing decreased mobility, difficulty bending, crunching and crepitus. Pertinent negatives include locking. The patient has had a previous x-ray. She has had no formal knee treatments. Reason For Referral Reason For Referral No Information Plan Of Treatment Date Type Action Status Referral Ordered: X-ray exam knee, 3 views LT knee ordered Referral Ordered: X-ray exam knee, 4+ views RT knee ordered History Of Present Illness Encounter Date Complaint History Of Prese nt Illness knee pain equally on both sides Nena Bradford is a 56 year old female. She has a past history significant for lumbar spinal stenosis and degenerative scoliosis. The knee symptoms appear to be separate and distinct however. She presents with pain, crepitus and swelling on the right and left side equally. She states that the symptoms have been acute non-traumatic and began 4 months ago. The symptoms occur intermittently. The problem is worse. Currently the patient states that the symptoms are moderate-severe. The patient is experiencing pain in the following location: anterior on the right and left side equally. The pain does not radiate. The symptoms are aggravated by daily activities, ascending stairs and particularly walking. Nena states that the symptoms are relieved by rest. In addition to knee pain equally on both sides the patient is also experiencing decreased mobility, difficulty bending, crunching and crepitus. Pertinent negatives include locking. The patient has had a previous x-ray. She has had no formal knee treatments. Functional Status Date Functional Assessmen t No Information Instructions Date Instruction Additional Infor mation The patient would li ke to proceed with an initial conservative plan. We discussed the risks, benefits, and alternatives of a minor procedure in the form of a steroid vs. PRP injection, as well as the pros and cons of each. She would like to hold off for now which I agree with. We will also institute efforts on weight control. They were given instruction on icing and activity modifications. A prescription was given for physical therapy with the intent to learn a home program. They were given a instructions on use of an oral NSAID/Tylenol with PCP approval. We will consider a steroid injection first if not improved, and if that fails to provide sustained relief we discussed PRP would be an option. The patient will follow up on an as needed basis but was instructed to contact us in 3-4 weeks to update us on her progress. Questions answered, verbalized understanding. Related to Bilateral primary osteoarthritis of knee Assessments Type Assessment Date assessment Chondromalacia patellae, right k nee assessment Bilateral primary osteoarthritis of knee assessment Chondromalacia patellae, left kn ee impression We discussed in deta il the pathophysiology, symptoms, and treatment options of patellofemoral chondrosis/osteoarthritis. We discussed specifically the non-operative management of this problem, as well as the need for a comprehensive treatment program including icing, activity modifications, weight control/weight loss, and a detailed physical therapy regimen. We discussed the role of injections, including cortisone's limited role, viscosupplementation and biologic injections. We discussed the rare indication for arthroscopic intervention and/or TKA/PFA in the future. After a thorough discussion the patient and I have agreed to proceed with the following treatment plan: Mental Status Date Cognitive Assessment Orientation - Butler ed to time, place, person, situation.Normal Orientation Patient Care Teams Name Effective Dates (start - stop) Status Members No Information
--- OUTSIDE RECORDS SUMMARY | 2025-04-08 00:49 | XMS_ITS | Encounter Summary ---
Author Organization [facility] Address [address] [place] [address] Care Team Providers Care Case Specialist Name Role Phone Shon More MD Primary Care Provider [phone] Encounter Details Date Type Department Care Team (Late st Contact Info) Description 08/23/2005 Outpatient Historical [facility] DEPT Sena Lamas DIZZINESS AND GIDDINESS (Primary Dx) Social History Tobacco Use Types Packs/Day Years Used Date Smoking Tobacco: Never Assessed Comments Unknown Sex and Gender Information Value Date Recorded Sex Assigned at Not on file Legal Sex Female 3:52 AM ARCHIVES DIRECTOR Gender Identity Not on file Sexual Orientation Not on file documented as of this encounter Plan of Treatment Upcoming Encounters Date Type Department Care Team (Late st Contact Info) Description 01/25/2026 10:00 AM ARCHIVES DIRECTOR Office Visit [facility] [place] [address] [place] [address] [place] [address] [address] [place] [address] documented as of this encounter Visit Diagnoses Diagnosis Dizziness and giddiness- Primary documented in this encounter Care Teams Case Specialist Relationship Specialty [place] [address] [address] [place] [address] PCP - General Family Practice 08/20/23 documented as of this encounter
--- OUTSIDE RECORDS SUMMARY | 2025-04-08 00:49 | XMS_ITS | Encounter Summary ---
Author Organization [facility] Address [address] [place] [address] Care Team Providers Care Packing Room Inspector Name Role Phone Shon More MD Primary Care Provider Encounter Details Date Type Department Care Team (Latest Contact Info) Description 05/11/2002 Outpatient Historical [facility] LAB,NON-PATIENT Tam Waldrop MD [address] [facility] [address] [place] [address] CYST OF THYROID (Primary Dx) Social History Tobacco Use Types Packs/Day Years Used Date Smoking Tobacco: Never Assessed Comments Unknown Sex and Gender Information Value Date Recorded Sex Assigned at Not on file Legal Sex Female 3:52 AM PRODUCTION CLOTH CUTTER Gender Identity Not on file Sexual Orientation Not on file documented as of this encounter Plan of Treatment Upcoming Encounters Date Type Department Care Team (Late st Contact Info) Description 01/25/2026 10:00 AM PRODUCTION CLOTH CUTTER Office Visit [facility] [place] [address] [place] [address] [place] [address] [address] [place] [address] documented as of this encounter Visit Diagnoses Diagnosis Cyst of thyroid- Primary documented in this encounter Care Teams Packing Room Inspector Relationship Specialty [place] [address] [address] [place] [address] PCP - General Family Practice 08/20/23 documented as of this encounter
--- OUTSIDE RECORDS SUMMARY | 2025-04-08 00:49 | XMS_ITS | Encounter Summary ---
Author Organization [facility] Address [address] [place] [address] Care Team Providers Care Systems Program Manager Name Role Phone Shon More MD Primary Care Provider [phone] Encounter Details Date Type Department Care Team (Latest Contact Info) Description 03/20/[address] [facility] Kashif [place] MD [address] [place] [address] SCREENING MAMM-MAILG NEOPL-OTHER (Primary Dx) Social History Tobacco Use Types Packs/Day Years Used Date Smoking Tobacco: Never Assessed Comments Unknown Sex and Gender Information Value Date Recorded Sex Assigned at Not on file Legal Sex Female 3:52 AM MOTORBOAT MECHANIC Gender Identity Not on file Sexual Orientation Not on file documented as of this encounter Plan of Treatment Upcoming Encounters Date Type Department Care Team (Late st Contact Info) Description 01/25/2026 10:00 AM MOTORBOAT MECHANIC Office Visit [facility] Primary Care [place] [address] [place] [address] [place] [address] [address] [place] [address] documented as of this encounter Visit Diagnoses Diagnosis Other screening mammogram- Primary documented in this encounter Care Teams Systems Program Manager Relationship Specialty [place] [address] [address] [place] [phone] PCP - General Family Practice 08/20/23 documented as of this encounter
--- OUTSIDE RECORDS SUMMARY | 2025-04-08 00:49 | XMS_ITS | Encounter Summary ---
Author Organization [facility] Address [address] [place] [address] Care Team Providers Care Weapons Designer Name Role Phone Shon More MD Primary Care Provider [phone] Encounter Details Date Type Department Care Team (Latest Contact Info) Description 09/12/2003 Outpatient Historical [facility] Darien Vazquez SEBACEOUS CYST (Primary Dx) Social History Tobacco Use Types Packs/Day Years Used Date Smoking Tobacco: Never Assessed Comments Unknown Sex and Gender Information Value Date Recorded Sex Assigned at Not on file Legal Sex Female 3:52 AM TIME CLOCK INSPECTOR Gender Identity Not on file Sexual Orientation Not on file documented as of this encounter Plan of Treatment Upcoming Encounters Date Type Department Care Team (Late st Contact Info) Description 01/25/2026 10:00 AM TIME CLOCK INSPECTOR Office Visit [facility] Primary Care [place] [address] [place] [address] [place] [address] [address] [place] [address] documented as of this encounter Visit Diagnoses Diagnosis Sebaceous cyst- Primary documented in this encounter Care Teams Weapons Designer Relationship Specialty [place] [address] [address] [place] [phone] PCP - General Family Practice 08/20/23 documented as of this encounter
--- OUTSIDE RECORDS SUMMARY | 2025-04-08 00:49 | XMS_ITS | Encounter Summary ---
Author Organization [facility] Address [address] [place] [address] Care Team Providers Care Slack Line Yarder Name Role Phone Shon More MD Primary Care Provider [phone] Encounter Details Date Type Department Care Team (Latest Contact Info) Description 03/23/2004 Outpatient Historical HIS [facility] Kashif [place] MD [address] [facility] [address] [place] [address] SCREENING MAMM-MAILG NEOPL-OTHER (Primary Dx) Social History Tobacco Use Types Packs/Day Years Used Date Smoking Tobacco: Never Assessed Comments Unknown Sex and Gender Information Value Date Recorded Sex Assigned at Not on file Legal Sex Female 3:52 AM FARM CROPS TEACHER Gender Identity Not on file Sexual Orientation Not on file documented as of this encounter Plan of Treatment Upcoming Encounters Date Type Department Care Team (Late st Contact Info) Description 01/25/2026 10:00 AM FARM CROPS TEACHER Office Visit [facility] Primary [facility] [place] [address] [place] [address] [place] [address] [address] [place] [address] documented as of this encounter Visit Diagnoses Diagnosis Other screening mammogram- Primary documented in this encounter Care Teams Slack Line Yarder Relationship Specialty [place] [address] [address] [place] [phone] PCP - General Family Practice 08/20/23 documented as of this encounter
--- OUTSIDE RECORDS SUMMARY | 2025-04-08 00:49 | XMS_ITS | Encounter Summary ---
Author Organization [facility] Address [address] [place] [address] Care Team Providers Care Clipper Counters Name Role Phone Shon More MD Primary Care Provider [phone] Encounter Details Date Type Department Care Team (Late st Contact Info) Description 02/23/2025 Results Follow-Up [facility] Care [place] [address] [place] [address] [place] [address] [place] [address] CBC WITH DIFFERENTIAL, COMPREHENSIVE METABOLIC PANEL, [...] on file Legal Sex Female 3:52 AM CORE FILER Gender Identity Not on file Sexual Orientation [...] st Contact Info) Description 01/25/2026 10:00 AM CORE FILER Office Visit [facility] [place] [address] [place] [address] [place] [address] [place] [phone] documented as of this encounter Visit Diagnoses Diagnosis Prediabetes- Primary Other abnormal glucose documented in this encounter Care Teams Clipper Counters Relationship Specialty [place] [address] [facility] [place] [address] PCP - General Family Practice 08/20/23 documented as of this encounter
--- OUTSIDE RECORDS SUMMARY | 2025-04-08 00:49 | XMS_ITS | Encounter Summary ---
Author Organization [facility] Address [address] [place] [address] Care Team Providers Care Power Press Tender Name Role Phone Shon More MD Primary Care Provider [phone] Encounter Details Date Type Department Care Team (Latest Contact Info) Description 03/15/2003 Outpatient Historical HIS [facility] Kashif Redmond MD [address] [facility] [address] [place] [address] SCREENING MAMM-MALIG NEOPL-HI RISK (Primary Dx) Social History Tobacco Use Types Packs/Day Years Used Date Smoking Tobacco: Never Assessed Comments Unknown Sex and Gender Information Value Date Recorded Sex Assigned at Not on file Legal Sex Female 3:52 AM COMPUTER AIDED DESIGN DESIGNER Gender Identity Not on file Sexual Orientation Not on file documented as of this encounter Plan of Treatment Upcoming Encounters Date Type Department Care Team (Late st Contact Info) Description 01/25/2026 10:00 AM COMPUTER AIDED DESIGN DESIGNER Office Visit [facility] Primary [place] [address] [place] [address] [place] [address] [address] [place] [address] documented as of this encounter Visit Diagnoses Diagnosis Screening mammogram for high-risk patient- Primary documented in this encounter Care Teams Power Press Tender Relationship Specialty [place] [address] [place] [address] PCP - General Family Practice 08/20/23 documented as of this encounter
--- OUTSIDE RECORDS SUMMARY | 2025-04-08 00:49 | XMS_ITS | Encounter Summary ---
Author Organization [facility] Address [address] [place] [address] Care Team Providers Care Traffic Monitor Specialist Name Role Phone Shon More MD Primary Care Provider [phone] Encounter Details Date Type Department Care Team (Latest Contact Info) Description 08/26/2002 Outpatient Historical HIS [facility] Tam Solitario MD [address] [facility] [place] [address] NONTOX MULTINODUL GOITER (Primary Dx) Social History Tobacco Use Types Packs/Day Years Used Date Smoking Tobacco: Never Assessed Comments Unknown Sex and Gender Information Value Date Recorded Sex Assigned at Not on file Legal Sex Female 3:52 AM HEALTH PLAN ADVISOR Gender Identity Not on file Sexual Orientation Not on file documented as of this encounter Plan of Treatment Upcoming Encounters Date Type Department Care Team (Late st Contact Info) Description 01/25/2026 10:00 AM HEALTH PLAN ADVISOR Office Visit [facility] Primary [place] [address] [place] [address] [place] [address] [place] [place] [address] documented as of this encounter Visit Diagnoses Diagnosis Nontoxic multinodular goiter- Primary documented in this encounter Care Teams Traffic Monitor Specialist Relationship Specialty [place] [address] [address] [place] [address] PCP - General Family Practice 08/20/23 documented as of this encounter
--- OUTSIDE RECORDS SUMMARY | 2025-04-08 00:49 | XMS_ITS | Encounter Summary ---
Author Organization [facility] Address [address] [place] [address] Care Team Providers Care Top Frame Fitter Name Role Phone Shon More MD Primary Care Provider [phone] Encounter Details Date Type Department Care Team (Latest Contact Info) Description 06/26/2007 Outpatient Historical HIS [facility] Kashif Redmond MD [address] [facility] [address] [place] [address] Other Screening Mammogram (Primary Dx) Social History Tobacco Use Types Packs/Day Years Used Date Smoking Tobacco: Never Assessed Comments Unknown Sex and Gender Information Value Date Recorded Sex Assigned at Not on file Legal Sex Female 3:52 AM FRAME BUILDER Gender Identity Not on file Sexual Orientation Not on file documented as of this encounter Plan of Treatment Upcoming Encounters Date Type Department Care Team (Late st Contact Info) Description 01/25/2026 10:00 AM FRAME BUILDER Office Visit [facility] Primary Care [place] [address] [place] [address] [place] [address] [place] [place] [address] documented as of this encounter Visit Diagnoses Diagnosis Other screening mammogram- Primary documented in this encounter Care Teams Top Frame Fitter Relationship Specialty [place] [address] [address] [place] [address] PCP - General Family Practice 08/20/23 documented as of this encounter
--- OUTSIDE RECORDS SUMMARY | 2025-04-08 00:49 | XMS_ITS | Encounter Summary ---
Author Organization [facility] Address [address] [place] [address] Care Team Providers Care Grades 6 Through 8 Teacher Name Role Phone Shon More MD Primary Care Provider [phone] Encounter Details Date Type Department Care Team (Latest Contact Info) Description 07/14/2008 Outpatient Historical HIS [facility] Ayaka Redmond MD [address] [facility] [address] [place] [address] Other Screening Mammogram Social History Tobacco Use Types Packs/Day Years Used Date Smoking Tobacco: Never Assessed Comments Unknown Sex and Gender Information Value Date Recorded Sex Assigned at Not on file Legal Sex Female 3:52 AM PRICING ACTUARY Gender Identity Not on file Sexual Orientation Not on file documented as of this encounter Plan of Treatment Upcoming Encounters Date Type Department Care Team (Late st Contact Info) Description 01/25/2026 10:00 AM PRICING ACTUARY Office Visit [facility] Primary Care [place] [address] [place] [address] [place] [address] [place] [address] documented as of this encounter Procedures Procedure Name Priority Date/Time Associated Diagnosis Comments MAMMO SCREEN BILAT W OR WO CAD Routine 07/14/2008 2:08 PM CDT documented in this encounter Results * MAMMO DIGITAL SCREEN BILAT (07/14/2008 2:08 PM CDT) Anatomical Region Laterality Modality Breast Bilateral Other 07/14/2008 2:08 PM CDT Narrative 07/14/2008 3:12 PM CDT [address] [address] Admit Date: 07/14/2008 NENA YODER Sex: F Admit Prov: AYAKA SHETH Date: 1965 Primary Care Prov: LISA DE LA CRUZ CMRN: [id number] Room: Mike N: [id number] IMAGING SERVICES Ordering Prov: AYAKA SHETH Accession Number: [id number] Interpretation BILATERAL DIGITAL MAMMOGRAM WITH COMPUTER-ASSISTED DIAGNOSIS [...] Procedure Note Victor M Valderrama - 07/14/[address] [address] Admit Date: 07/14/2008 NENA YODER Sex: F Admit Prov: AYAKA SHETH Date: 1965 Primary Care Prov: LISA DE LA CRUZ CMRN: [id number] [facility] N: [id number] IMAGING SERVICES Ordering Prov: AYAKA SHETH Interpretation [...] mammogram documented in this encounter Care Teams Grades 6 Through 8 Teacher Relationship Specialty [place] [address] [facility] [place] [address] PCP - General Family Practice 08/20/23 documented as of this encounter
--- OUTSIDE RECORDS SUMMARY | 2025-04-08 00:49 | XMS_ITS | Encounter Summary ---
Author Organization [facility] Address [address] [place] [address] Care Team Providers Care Behavioral Health Worker Name Role Phone Shon More MD Primary Care Provider [phone] Encounter Details Date Type Department Care Team (Latest Contact Info) Description 04/17/2006 Outpatient Historical HIS [facility] Kashif Redmond MD [address] [facility] [address] [place] [address] Other Screening Mammogram (Primary Dx) Social History Tobacco Use Types Packs/Day Years Used Date Smoking Tobacco: Never Assessed Comments Unknown Sex and Gender Information Value Date Recorded Sex Assigned at Not on file Legal Sex Female 3:52 AM PLUGGING MACHINE OPERATOR Gender Identity Not on file Sexual Orientation Not on file documented as of this encounter Plan of Treatment Upcoming Encounters Date Type Department Care Team (Late st Contact Info) Description 01/25/2026 10:00 AM PLUGGING MACHINE OPERATOR Office Visit [facility] Primary Care [place] [address] [place] [address] [place] [address] [address] [place] [address] documented as of this encounter Visit Diagnoses Diagnosis Other screening mammogram- Primary documented in this encounter Care Teams Behavioral Health Worker Relationship Specialty [place] [address] [address] [place] [address] PCP - General Family Practice 08/20/23 documented as of this encounter
--- OUTSIDE RECORDS SUMMARY | 2025-04-08 00:49 | XMS_ITS | Encounter Summary ---
Author Organization [facility] Address [address] [place] [address] Care Team Providers Care Petal Shaper Hand Name Role Phone Shon More MD Primary Care Provider [phone] Encounter Details Date Type Department Care Team (Latest Contact Info) Description 07/14/2002 Outpatient Historical [facility] Tam Waldrop MD [address] 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 Gender Identity Not on file Sexual Orientation Not on file documented as of this encounter Plan of Treatment Upcoming Encounters Date Type Department Care Team (Late st Contact Info) Description 01/25/2026 10:00 AM ASSISTANT PROFESSOR OF ARCHAEOLOGY Office Visit [facility] Primary [place] [address] [place] [address] [place] [address] [address] [place] [address] documented as of this encounter Visit Diagnoses Diagnosis Nontoxic uninodular goiter- Primary documented in this encounter Care Teams Petal Shaper Hand Relationship Specialty [place] [address] [place] [address] PCP - General Family Practice 08/20/23 documented as of this encounter
--- OUTSIDE RECORDS SUMMARY | 2025-04-08 00:49 | XMS_ITS | Encounter Summary ---
Author Organization [facility] Address [address] [place] [address] Care Team Providers Care Cataloging Assistant Name Role Phone Shon More MD Primary Care Provider [phone] Encounter Details Date Type Department Care Team (Latest Contact Info) Description 03/23/2004 Outpatient Historical [facility] Sena Lamas SCREENING MAMM-MAILG NEOPL-OTHER (Primary Dx) Social History Tobacco Use Types Packs/Day Years Used Date Smoking Tobacco: Never Assessed Comments Unknown Sex and Gender Information Value Date Recorded Sex Assigned at Not on file Legal Sex Female 3:52 AM CHEMIST ENZYMES Gender Identity Not on file Sexual Orientation Not on file documented as of this encounter Plan of Treatment Upcoming Encounters Date Type Department Care Team (Late st Contact Info) Description 01/25/2026 10:00 AM CHEMIST ENZYMES Office Visit [facility] Primary [place] [address] [place] [address] [place] [address] [place] [address] documented as of this encounter Visit Diagnoses Diagnosis Other screening mammogram- Primary documented in this encounter Care Teams Cataloging Assistant Relationship Specialty [place] [address] [place] [address] PCP - General Family Practice 08/20/23 documented as of this encounter
[2025-04-08 01:16] VITALS: BP 139/95; PULSE 65; RESP 18; O2SAT 97
[2025-04-08] MEDS: FLUORESCEIN SOD 1 MG/STRIP (01:16)
[2025-04-08] MEDS: TETRACAINE HCL 0.5% OPHTH SOLN 4 ML BTL 1 DROP (01:16)
[2025-04-08] MEDS: IBUPROFEN 600 MG TABLET (01:16)
[2025-04-08] MEDS: ERYTHROMYCIN OPHTH OINTMENT 1 GM TUBE 1 APPLIC (02:16)
[2025-04-08 02:30] VITALS: BP 129/89; PULSE 72; RESP 18; O2SAT 96
--- NOTE | 2025-04-13 18:44 | ED.EYEPROB ---
HPI - Eye Problem General Chief complaint: Eye Problems Stated complaint: Right eye pain-unknown cause Time Seen by Provider: 04/08/25 00:19 History of Present Illness HPI Narrative: Pt is a 60-year-old female who presents to the ER with eye pain. She reports she was wiping make-up off her eyes with a make-up wipe when she started experiencing pain in her R eye. 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 She endorses photophobia and blurry vision at the time of examination. Pt denies any curtains in her vision, eye discharge or bleeding, or pain on her eyelid. Related Data Allergies Allergy/AdvReac Type Severity Reaction Status Date / Time cefprozil Allergy Intermediate Dizziness Verified 04/07/25 22:04 Sulfa (Sulfonamide Allergy Intermediate Rash Verified 04/07/25 22:04 Antibiotics) Review of Systems Review of Systems: All systems reviewed & are unremarkable except as noted in HPI and below Exam Narrative: GENERAL: Well appearing, well-nourished, non-toxic, in mild distress d/t pain. HEAD: Normocephalic, atraumatic. EYES: PERRLA, conjunctiva clear in L eye, mild, mild hyperemia in R eye. No nystagmus, pinpoint corneal abrasion to the sclera medial to the L side of the pupil. RESPIRATORY: Airway patent, respirations nonlabored. Clear to auscultation bilaterally, no rales, rhonchi, wheezing. CARDIOVASCULAR:Regular rhythm without murmurs, rubs, or gallops. MUSCULOSKELETAL: Moves all extremities. No gross deformities. SKIN: Warm, dry, normal color. NEURO: A&O X3. Speech clear. Cranial nerves II-XII grossly intact. Steady gait. No ataxic movements. No focal deficits. Course Vital Signs Vital signs: Vital Signs Temperature 36.7 C 04/07/25 22:10 Pulse Rate 93 04/07/25 22:10 Respiratory Rate 16 04/07/25 22:10 Blood Pressure 144/100 H 04/07/25 22:10 Pulse Oximetry 97 04/07/25 22:10 Oxygen Delivery Room Air 04/07/25 22:10 Temperature 36.7 C 04/07/25 22:10 Pulse Rate 72 04/08/25 02:30 Respiratory Rate 18 04/08/25 02:30 Blood Pressure 129/89 04/08/25 02:30 Pulse Oximetry 96 04/08/25 02:30 Oxygen Delivery Room Air 04/07/25 22:10 MDM - Eye Problem MDM Narrative Medical decision making narrative: Pt is a 60-year-old female who presents to the ER with eye pain. She reports she was wiping make-up off her eyes with a make-up wipe when she started experiencing pain in her R eye. 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 She endorses photophobia and blurry vision at the time of examination. Pt denies any curtains in her vision, eye discharge or bleeding, or pain on her eyelid. Pt's eye was examined with a srinivasan lamp after Tetracaine drops and fluorescein stain were instilled in her R eye. She was noted to have a pinpoint corneal abrasion to the sclera medial to the L side of the pupil. Pt declined pain medication besides ibuprofen. Results of examination shared with pt and her . She will be given a dose of optic antibiotic ointment here in the ER, along with a prescription for home. 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 She was strongly advised to contact him in the morning and set up a follow-up appointment. Pt verbalizes understanding and is in agreement with plan. Vital signs stable at time of discharge. All questions answered. Strict return precautions provided. Differential Diagnosis Differential diagnosis: Likely corneal abrasion, conjunctivitis, hyphema, subconjunctival hemorrhage and corneal ulcer Discharge Plan Discharge Clinical Impression: Corneal abrasion Patient Disposition: Home Condition: Stable Additional Instructions: Please return to the ER with any concerning of worsening symptoms. Follow-up with your eye doctor tomorrow, as discussed. Complete your full dose of antibiotic ointment for your eye. Patient Language: Burmese Follow-up/Referrals: PHYSICIAN NOT ON STAFF,NONSTAFF [Primary Care Provider] - Time of Disposition: 19:02
== END 2025-04-08 02:30 | disposition home or self-care (01) ==
PROVIDERS: Emergency Provider Registered Nurse
DX: S05.01XA Injury of conjunctiva and corneal abrasion without foreign body, right eye, initial encounter (principal); X58.XXXA Exposure to other specified factors, initial encounter
CPT/HCPCS: 99283; A9270

== ENCOUNTER 2025-11-10 08:00 | Emergency (ER) | payer OTHER, SELFPAY ==
[2025-11-10 08:20] VITALS: BP 142/82; PULSE 92; RESP 16; TEMP 37.3; O2SAT 99
--- NOTE | 2025-11-10 08:29 | ED_ITS ---
HPI - URI/Sore Throat General Chief Complaint: Upper Respiratory Infection Stated Complaint: sinus irritation x8 days Time Seen by Provider: 11/10/25 08:29 Source: patient Mode of arrival: ambulatory Limitations: no limitations History of Present Illness HPI Narrative: patient is a 60-year-old female who presents with sinus congestion, pressure and green drainage for 8 days. Patient has tried [id number] medication with no relief. Denies fever, chills, nausea, vomiting, diarrhea Related Data Allergies Allergy/AdvReac Type Severity Reaction Status Date / Time cefprozil Allergy Intermediate Dizziness Verified 11/10/25 08:18 Sulfa (Sulfonamide Allergy Intermediate Rash Verified 11/10/25 08:18 Antibiotics) Review of Systems Review of Systems: All systems reviewed & are unremarkable except as noted in HPI and below Constitutional: Constitutional: Denies chills, Denies fatigue, Denies fever(s), Denies headache(s), Denies malaise and Denies weakness Eyes: Eyes: Denies blurry vision, Denies itchy eyes and Denies loss of vision ENT: Denies otalgia, Denies headache(s), Reports nasal congestion, Reports nasal discharge, Denies sinus pain, Reports sinus pressure and Denies sore throat Cardiovascular: Cardiovascular: Denies chest pain, Denies irregular heart rh ythm and Denies dyspnea Respiratory: Respiratory: Denies cough and Denies dyspnea Gastrointestinal: Gastrointestinal: Denies abdominal pain, Denies diarrhea, Denies nausea and Denies vomiting Musculoskeletal: Musculoskeletal: Denies back pain, Denies myalgias and Denies arthralgias Integumentary/Breasts: Skin/Breast: Denies pruritus and Denies rash Neurologic: Denies headache(s), Denies loss of vision and Denies weakness Psychiatric: Psychiatric: Reports no additional psychiatric complaints Endocrine: Endocrine: Denies fatigue Allergic/Immunologic: Allergic/Immunologic: Denies itchy eyes PMFSH Comments At time of signature, agree with nursing past medical, surgical, social and family history. There is no relevant family history pertinent to the presenting complaint. Exam Const: General: cooperative, healthy appearing, comfortable, no acute distress and well nourished Nutritional Appearance: well nourished Orientation/consciousness: patient oriented x3 Limitations: no limitations HENMT: Head: normal to inspection, normocephalic and atraumatic Ears: hearing grossly normal bilaterally, external ears normal, TM's normal bilaterally, EAC's normal and no periauricular adenopathy Face/Nose/Sinus: Normal external nose present, Abnormal mucous membranes and turbinates present erythematous bilateral and diffuse, normal facial exam, face symmetric and Facial tenderness on exam of face and sinuses Face and sinus: normal facial exam and face symmetric Mouth: Yes Normal oral and palatal mucosa present, Yes lip normal, Yes tongue normal, Yes Normal salivary glands and ducts present, Yes oropharynx normal and Yes moist mucous membranes Teeth and gingiva: dentition normal Throat: posterior oropharynx normal, tonsils normal and uvula midline Eyes: General: appearance normal, both eyes and all related structures Alignment and Position: alignment normal and position normal Periorbital: periorbital findings normal Eyelids: eyelids normal Pupils: Equal, round and reactive pupils present Neck: Neck: normal visual inspection, full ROM, no lymphadenopathy and supple Chest: Chest palpation & inspection: normal inspection of the chest and normal palpation of entire chest wall Resp: Effort & Inspection: normal respiratory effort and able to speak in complete sentences Auscultation: clear to auscultation bilaterally, no crackles, no rales, no rhonchi and no wheezes Cardio: Rate: regular rate Rhythm: regular rhythm Heart sounds: S1 normal heart sound present and S2 normal heart sound present GI: Inspection: normal to inspection Skin: General skin exam: normal color and no rashes or lesions noted Neuro: General: patient oriented x3 and moves all extremities Cranial nerves: Yes Equal, round and reactive pupils present Speech: normal speech Gait exam (Neuro): Normal gait present Extrem: General: normal to inspection, full ROM and no edema Psych: Appearance: grossly normal and well kempt Mental Status: mental status grossly normal Speech and movement: Normal speech and movement present Affect: normal affect Attitude: cooperative Thought process: Normal thought process present Course Course Emergency Course: Patient is aware of diagnosis, understands and agrees to treatment plan. Anticipatory guidance given. Patient agrees to follow-up as directed and is aware of reasons to seek care at the emergency department. Portions of this record may have been created with voice recognition software Level of Care: Express Care Visit Vital Signs Vital signs: Vital Signs Temperature 37.3 C 11/10/25 08:20 Pulse Rate 92 11/10/25 08:20 Respiratory Rate 16 11/10/25 08:20 Blood Pressure 142/82 H 12/18/25 08:20 Pulse Oximetry 99 11/10/25 08:20 Temperature 37.3 C 11/10/25 08:20 Pulse Rate 92 11/10/25 08:20 Respiratory Rate 16 11/10/25 08:20 Blood Pressure 142/82 H 11/10/25 08:20 Pulse Oximetry 99 11/10/25 08:20 [facility] MDM Narrative Medical decision making narrative: Based on exam and length of symptoms will treat for sinusitis with steroids and antibiotics. Pt well hydrated appearing, in no respiratory distress, hemodynamically stable. Recommend supportive care. The patient is stable at time of discharge the clinical impression was discussed and the patient was given the opportunity to ask questions, which were addressed as completely as possible given the information available at present. Anticipatory guidance and return to care precautions were discussed and the importance of primary care follow-up was stressed and encouraged. The patient voiced understanding of the plan, indications to return, and the need for follow-up. Exam findings show no acute concerns or changes Patient is appropriate for outpatient treatment and follow-up. Differential Diagnosis Differential Diagnosis: Differential diagnosis considered: Castro virus, strep pharyngitis, allergic rhinitis, upper respiratory tract infection, sinusitis, rhinosinusitis, nasopharyngitis. viral pharyngitis, otitis media, otitis externa, otitis effusion, foreign body, cerumen impaction, viral syndrome, and influenza. Medical Records I have reviewed the following patient records and this information was taken into consideration when formulating the assessment and plan.: previous clinic visits Discharge Plan Discharge Clinical Impression: Sinusitis Qualifiers: Sinusitis location: pansinusitis Chronicity: acute Recurrence: non-recurrent Qualified Code(s): J01.40 - Acute pansinusitis, unspecified Patient Disposition: Home Condition: Stable Instructions: Sinusitis (ED) Additional Instructions: take steroids per package instructions. Take antibiotics as prescribed. Symptomatic treatment of a sinus infection aims to relieve symptoms. These treatments do not shorten the duration of illness. Nonprescription pain medications, such as acetaminophen (eg, Tylenol) or ibuprofen (eg, Motrin, Advil), are recommended for pain. Flushing the nose and sinuses with a saline solution several times per day has been proven to decrease pain associated with congestion and shorten the duration of symptoms. Nasal steroids (such as Flonase, 2 sprays in each nostril daily) can help to reduce swelling inside the nose, usually within two to three days. These drugs have few side effects and relieve symptoms in most people. Oral decongestants (pseudoephedrine and phenylephrine) may be helpful if you have associated symptoms of ear pain or fullness. Nasal decongestant sprays, including oxymetazoline (Afrin) and phenylephrine (Jelani-Synephrine), can be used to temporarily treat congestion. However, these sprays should not be used for more than two to three days due to the risk of rebound congestion (when the nose becomes congested constantly unless the medication is used repeatedly), possible addiction, and long-term consequences of frequent use, including persistent nasal dryness and crusting, which is very difficult to treat once it has developed. Medications to thin secretions (such as guaifenesin) may help to clear mucus. Please follow-up with your primary care doctor in the next 1-2 days. If you cannot follow-up with your primary care doctor please go to the ED for any urgent issues. If you have any worsening of symptoms or any other concerns please go to the ED immediately. Patient Language: Icelandic Prescriptions: New amoxicillin-pot clavulanate 875-125 mg tablet 1 tablet PO Q12H 10 Days Qty: 20 0RF methylprednisolone [Medrol (Monster)] 4 mg tablets,dose pack See Rx Instructions .ROUTE .COMPLEX Qty: 21 0RF Rx Instructions: orally per package directions Follow-up/Referrals: Татьяна Bardales [employer] [Advanced Practice Nurse, Internal Medicine] - 3 Days Referral Note: Establish care Stand Alone Forms: Work/School Release IP Time of Disposition: 09:04
== END 2025-11-10 09:11 | disposition home or self-care (01) ==
PROVIDERS: Emergency Provider Nurse Practitioner Family
DX: J01.40 Acute pansinusitis, unspecified (principal); Z90.89 Acquired absence of other organs
CPT/HCPCS: 99213; G0463